=== PATIENT | female | born 1970 | race Caucasian/White ===

== ENCOUNTER 2018-10-02 13:20 | Day surgery (SDC) | payer MEDICAID ==
[~2018-10-02] VITALS: Ht 154.9 cm; Wt 79.6 kg
[~2018-10-02 13:20] MED LIST: ANASTROZOLE; METO5TAB2 PO; ONDA4TAB35 PO; PANT40TA3 PO
[2018-10-02 15:03] VITALS: Ht 154.9 cm; Wt 79.6 kg
--- NOTE | 2018-10-02 15:26 | PREAC ---
Date/Time of Note Date/Time of Note DATE: 10/02/18 TIME: 15:23 Anesthesia Eval and Record Evaluation Time Pre-Procedure Interview DATE: 10/02/18 TIME: 15:23 Age 48 Sex female NPO: 8 hrs Preoperative diagnosis Breast Cancer Planned procedure EGD & Colonoscopy Past Medical History Past Medical History: Includes Musculoskeletal: Other (Hx of Breast Cancer) Surgery & Anesthesia Issues No known issue Meds Anticoagulation: No Beta Wendy within 24 hr: No Reason Beta Wendy not given: Pt. not on B-Wendy Reported Medications [Anastrozole] No Conflict Check 10/02/18 Discontinued Reported Medications Ondansetron Hcl* (Zofran* ODT) 4 mg -ODT Tab.disper, 4 MG PO BID PRN for NAUSEA AND OR VOMITING, TAB 07/06/14 Metoclopramide Hcl* (Metoclopramide Hcl*) 5 Mg Tablet, 5 MG PO BID PRN for NAUSEA AND OR VOMITING, TAB 07/06/14 Discontinued Scripts Pantoprazole* (Protonix*) 40 Mg Tablet.dr, 40 MG PO BID, #60 TAB 3 Refills Prov:JI QUINONEZ 07/10/14 Meds reviewed: Yes Allergies Coded Allergies: No Known Allergies (Verified Allergy, Unknown, 07/06/14) Allergies Reviewed: Yes Labs/Studies Labs Reviewed: Reviewed by anesthesiologist test: N/A (Bilateral salpingooophorectomy) Studies: ECG (n/a), CXR (n/a) Pre-procedure Exam Airway: Adequate mouth opening, Adequate thyromental dist Mallampati: Mallampati II Teeth: Normal Lung: Normal Heart: Normal ASA Physical Status ASA physical status: 2 Emergency: None Planned Anesthetic General/MAC: MAC Planned Pain Management Parenteral pain med Pre-operative Attestations Prior to commencing anesthesia and surgery, the patient was re-evaluated, there was verification of: *The patient's identity *The results of appropriate recent lab work and preoperative vital signs *The above evaluation not changing prior to induction *Anesthetic plan, risk benefits, alternative and complications discussed with patient/family; questions answered; patient/family understands, accepts and wishes to proceed. NALINI ORDOÑEZ MD Oct 02, 2018 15:26
[2018-10-02 15:35] VITALS: BP 124/57; PULSE 80; RESP 22
[2018-10-02] MEDS ORDERED: PROPOFOL 40 ML ONE (15:57)
--- NOTE | 2018-10-02 15:59 | PAC ---
Date/Time of Note Date/Time of Note DATE: 10/02/18 TIME: 15:58 Post-Anesthesia Notes Post-Anesthesia Note Last documented vital signs Vital Signs Date Temp Pulse Resp B/P (MAP) Pulse Ox O2 O2 Flow FiO2 Time Delivery Rate 10/02/18 97.6 80 22 124/57 95 Room Air 15:55 (79) Activity: WNL Respiratory function: WNL Cardiovascular function: WNL Mental status: Baseline Pain reasonably controlled: Yes Hydration appropriate: Yes Nausea/Vomiting absent: Yes NALINI ORDOÑEZ MD Oct 02, 2018 15:58
== END 2018-10-02 16:47 | disposition home or self-care (01) ==
LOC: GIL 13:20
PROVIDERS: ATTEND Internal Medicine
DX: Z12.11 Encounter for screening for malignant neoplasm of colon (principal); K64.8 Other hemorrhoids; K57.30 Diverticulosis of large intestine without perforation or abscess without bleeding; R10.10 Upper abdominal pain, unspecified; Z85.3 Personal history of malignant neoplasm of breast
CPT/HCPCS: 43239; 45378; Z7610; 88305; 88312